=== PATIENT | female | born 1990 | race African-American/Black ===

== ENCOUNTER 2017-11-21 10:42 | Emergency (ER) | payer MEDICAID, OTHER ==
[~2017-11-21] VITALS: Ht 170.2 cm; Wt 63.5 kg
[2017-11-21 11:37] LABS: Basophils # (auto) 0 uL; Basophils % (auto) 0.6 % (0.0-2.0); Eosinophils # (auto) 0.1 uL; Eosinophils % (auto) 1.5 % (0.0-7.0); Hemoglobin 14.4 g/dL (12.2-16.2); Lymphocytes # (auto) 1.3 uL; Lymphocytes % (auto) 29.9 % (10.0-50.0); Mean Corpuscular Hemoglobin 30.3 pg (28.0-32.0); Mean Corpuscular Hgb Conc. 34.3 g/dL (32.0-36.0); Mean Corpuscular Volume 88.4 fL (80.0-100.0); Monocytes # (auto) 0.2 uL; Monocytes % (auto) 4.5 % (0.0-12.0); Neutrophils # (auto) 2.8 uL; Neutrophils % (auto) 63.5 % (37.0-80.0); Nucleated Red Blood Cells % 0.1 %; Platelet Count (auto) 178 10^3/uL (140-450); Red Blood Cells 4.75 10^6/uL (4.0-5.20); Red Cell Distribution Width 13.2 % (11.8-14.3); White Blood Cell 4.5 10^3/uL (4.4-10.8)
[2017-11-21 11:59] LABS: BUN/Creatinine Ratio 9.3; Bilirubin, Total 0.3 mg/dL (0.2-1.0); Calcium 8.6 mg/dL (8.5-10.1); Potassium 4.6 mmol/L (3.5-5.1); Total Protein 8.7 g/dL (6.4-8.2)
[2017-11-21 16:30] VITALS: BP 102/60
== END 2017-11-21 17:17 | disposition left against medical advice (07) ==
LOC: ER 10:42
DX: O20.8 Other hemorrhage in early pregnancy (principal); O99.331 Smoking (tobacco) complicating pregnancy, first trimester; N92.6 Irregular menstruation, unspecified; Z3A.11 11 weeks gestation of pregnancy
CPT/HCPCS: 36415; 80053; 84702; 85025; 86900; 86901